=== PATIENT | female | born 2000 | race Caucasian/White ===

== ENCOUNTER 2020-01-10 13:01 | Emergency (ER) | payer BC, SELFPAY ==
--- NOTE | 2020-01-10 13:22 | ED.GENADULT ---
HPI - General Adult General Chief complaint: Ear Stated complaint: Possible ear infection Time Seen by Provider: 01/10/20 13:25 Source: patient and RN notes reviewed Mode of arrival: ambulatory Limitations: no limitations History of Present Illness HPI narrative: This is a 19 years old female presents to the office for an evaluation of ears pain for a couple days. Associated with sinus congestion. Admits to history of frequent ears infection as a kid. Denies fever, cough, or shortness of breath. Related Data Allergies Allergy/AdvReac Type Severity Reaction Status Date / Time amoxicillin [From Augmentin] Allergy Other Verified 01/10/20 13:26 carbamazepine [From Tegretol] Allergy Seizure Verified 01/10/20 13:26 clavulanic acid Allergy Other Verified 01/10/20 13:26 [From Augmentin] Review of Systems Review of Systems: Narrative: CONSTITUTIONAL: Denies fever ENT: Denies sore throat CARDIOVASCULAR: Denies chest pain RESPIRATORY: Denies dyspnea,cough GASTROINTESTINAL: Denies abdominal pain, nausea, vomiting, diarrhea. SKIN: Denies rash MUSCULOSKELETAL: Denies acute back pain NEUROLOGIC: Denies lightheaded PMFSH Past Medical History Medical History (Updated 01/10/20 @ 13:35 by VIVI Carolina) Hx of supraventricular tachycardia leaking valve per patient Social History Social History Gender identity (if verbalized by the patient): Female Comments At time of signature, I agree with nursing past medical, surgical, social and family history. There is no relevant family history pertinent to the presenting complaint. Exam Narrative: Exam Narrative: GENERAL: This is a well-nourished, well-developed patient, in no apparent distress. EYES: Sclera clear/white. Vision is grossly intact. EARS: External ears normal, auditory canals clear and without drainage, TMs noted fluid level without perforation. Hearing grossly intact. NOSE: External nose normal with no obvious nasal discharge, nares without redness, no rhinorrhea. THROAT: Mucous membranes moist, posterior pharynx clear. NECK: Neck supple, non-tender without lymphadenopathy, masses or thyromegaly. CARDIOVASCULAR: Regular rate and rhythm without murmurs, gallops, or rubs. RESPIRATORY: Clear to auscultation. Breath sounds equal bilaterally. No wheezes, rales, or rhonchi. GASTROINTESTINAL: Abdomen soft, non-tender, nondistended. Bowel sounds are active.No guarding. NEURO: awake, alert, and oriented to person, place and time. There were no obvious focal neurologic abnormalities. Steady gait Krishna Coma Scale Eye Opening: Spontaneous 4 Krishna Coma Scale Motor: Obeys Commands 6 Krishna Coma Scale Verbal: Oriented 5 Medical Decision Making MDM Narrative Medical decision making narrative: Discharge instructions reviewed with patient, as well as provided in writing per nursing staff. The instructions also include specific and strict return/GO TO THE ER as well as f/u information. All questions have been answered, and the patient deny any further questions with discharge and discharge plan. Differential Diagnosis Differential Diagnosis: Allergic Rhinitis,Sinusitis, otitis media, otitis externa Critical Care Time Critical Care Time Critical Care Time: No Discharge Plan Discharge Clinical Impression: Acute serous otitis media Qualifiers: Laterality: bilateral Recurrence: non-recurrent Qualified Code(s): H65.03 - Acute serous otitis media, bilateral Patient Disposition: Home, Self-Care Condition: Stable Instructions: Serous Otitis Media (ED) Additional Instructions: Your ear does not appear to be infected at the moment, however there are some fluid behind your ear which may cause your pain The prescribed medication may cause dryness, make sure to drink plenty of water You can also take Tylenol and ibuprofen as needed for pain Follow-up with your doctor if condition is not improving Prescrip
[2020-01-10 13:25] VITALS: BP 142/68; PULSE 70; RESP 16; TEMP 36.4; O2SAT 100
== END 2020-01-10 13:36 | disposition home or self-care (01) ==
PROVIDERS: Emergency Provider Nurse Practitioner
DX: H65.03 Acute serous otitis media, bilateral (principal)
CPT/HCPCS: 99203; G0463

== ENCOUNTER 2020-07-22 12:43 | Emergency (ER) | payer OTHER, BC, SELFPAY ==
--- NOTE | 2020-07-22 12:55 | ED.EYEPROB ---
HPI - Eye Problem General Chief complaint: Upper Respiratory Infection Stated complaint: swelling right eye Time Seen by Provider: 07/22/20 12:55 Source: patient and RN notes reviewed History of Present Illness HPI Narrative: Patient is a 20-year-old female who presents the urgent care with complaints of right eye swelling with rash. Patient states that the rash was noted last night and she has had some right sided ear pain for the last 3 days. Patient has not taken anything [id number] for her symptoms. Denies of any changes in recent face wash, detergents, make-up. Denies of any known trauma or injury to the face/right eye. Denies of any other upper respiratory symptoms. Denies of any fever, cough, shortness of breath. States that her father had been fatigued and was tested for Covid in the last 3 days, which was negative. No other acute complaints. No acute distress noted. Patient aware of the plan of care. Some parts of this dictation were generated by voice recognition software and may contain typographical and/or grammatical inaccuracies. Related Data Home Medications Medication Instructions Recorded Confirmed phentermine 37.5 mg PO DAILY 07/22/20 07/22/20 Allergies Allergy/AdvReac Type Severity Reaction Status Date / Time amoxicillin [From Augmentin] Allergy Other Verified 07/22/20 13:21 carbamazepine [From Tegretol] Allergy Seizure Verified 07/22/20 13:21 clavulanic acid Allergy Other Verified 07/22/20 13:21 [From Augmentin] Review of Systems Review of Systems: Narrative: CONSTITUTIONAL: Denies fever, chills, or sweats. EYES: Denies visual changes, redness, or discharge. Reports of rash surrounding the right eye ENT: Denies rhinorrhea, congestion, sore throat, or otalgia. CARDIOVASCULAR: Denies chest pain, palpitations, or edema. RESPIRATORY: Denies cough or dyspnea. GASTROINTESTINAL: Denies abdominal pain, nausea, vomiting, or diarrhea. GENITOURINARY: Denies dysuria or hematuria. SKIN: Denies rash or itching. MUSCULOSKELETAL: Denies back pain, joint pain, or myalgia. NEUROLOGIC: Denies headache, numbness, or weakness. All other systems reviewed are negative, except as documented in HPI. [facility] Past Medical History Medical History (Updated 07/22/20 @ 13:37 by VIVI Castellon) Hx of supraventricular tachycardia leaking valve per patient Social History Social History Gender identity (if verbalized by the patient): Female Comments At the time of my signature, I reviewed and agree with the nursing past medical, surgical, social, and family history. There is no relevant family history pertinent to the patient complaint. Exam Narrative: Exam Narrative: GENERAL: This is a well-nourished, well-developed patient, in no apparent distress. HEAD: normocephalic, atraumatic. EYES: PERRL. Sclera clear/white. Vision is grossly intact. No notable swelling surrounding the eyes. EARS: External ears normal, auditory canals clear and without drainage, mild fluid noted behind bilateral TMs without otitis. TMs normal without perforation. Hearing grossly intact. NOSE: External nose normal with no obvious nasal discharge, nares without redness, no rhinorrhea. THROAT: Mucous membranes moist, mild to moderate erythema noted to posterior oropharynx with petechiae to the roof/posterior oropharynx NECK: Neck supple, non-tender without lymphadenopathy CARDIOVASCULAR: Regular rate and rhythm without murmurs, gallops, or rubs. RESPIRATORY: Clear to auscultation. Breath sounds equal bilaterally. No wheezes, rales, or rhonchi. SKIN: Petechiae noted around the right eye NEURO: awake, alert, and oriented to person, place and time. There were no obvious focal neurologic abnormalities. EXTREMITIES: No clubbing, cyanosis, or edema. Course Vital Signs Vital signs: Vital Signs Temperature 98.3 F 07/22/20 13:00 Pulse Rate 86 07/22/20 13:00 Respiratory Rat
[2020-07-22 13:00] VITALS: BP 142/91; PULSE 86; RESP 16; TEMP 36.8; O2SAT 100
--- NOTE | 2020-07-22 14:10 | PC.NURSE ---
In middle of exam pt decided on her own she was going to stand up and walk out of the room, when asked where she was going she stated to get her . Would not return even when asked.
== END 2020-07-22 13:40 | disposition home or self-care (01) ==
PROVIDERS: Emergency Provider Nurse Practitioner Family; PCP Emergency Medicine
DX: R23.3 Spontaneous ecchymoses (principal)
CPT/HCPCS: 87081; 87880; 99213; G0463

== ENCOUNTER 2020-10-28 12:39 | Emergency (ER) | payer OTHER, BC, SELFPAY ==
--- NOTE | 2020-10-28 12:52 | ED.EAR ---
HPI - Ear Problem General Chief complaint: Ear Stated complaint: eart pain/dizziness Time Seen by Provider: 10/28/20 12:52 Source: patient and RN notes reviewed History of Present Illness HPI Narrative: Patient is a 20-year-old female who presents the urgent care with complaints of bilateral ear pain and intermittent dizziness for approximately 1 week. Patient states she has a history of bad ear infections and can tolerate a lot of ear pain . Patient has not taken anything for her pain with the exception of 1 dose of ibuprofen since Friday. Patient denies of any other respiratory symptoms such as cough, fever, nausea, vomiting. Patient states that she has been on phentermine for approximately 6 or 7 months and has never caused dizziness. Patient denies recent confusion, headaches, loss of consciousness, seizures. Patient is tearful but otherwise no acute distress noted. Patient aware of the plan of care. Some parts of this dictation were generated by voice recognition software and may contain typographical and/or grammatical inaccuracies. Related Data Home Medications Medication Instructions Recorded Confirmed phentermine 37.5 mg PO DAILY 07/22/20 10/28/20 Allergies Allergy/AdvReac Type Severity Reaction Status Date / Time amoxicillin [From Augmentin] Allergy Other Verified 07/22/20 13:21 carbamazepine [From Tegretol] Allergy Seizure Verified 07/22/20 13:21 clavulanic acid Allergy Other Verified 07/22/20 13:21 [From Augmentin] Review of Systems Review of Systems: Narrative: CONSTITUTIONAL: Denies fever, chills, or sweats. EYES: Denies visual changes, redness, or discharge. ENT: Reports a bilateral otalgia CARDIOVASCULAR: Denies chest pain, palpitations, or edema. RESPIRATORY: Denies cough or dyspnea. GASTROINTESTINAL: Denies abdominal pain, nausea, vomiting, or diarrhea. GENITOURINARY: Denies dysuria or hematuria. SKIN: Denies rash or itching. MUSCULOSKELETAL: Denies back pain, joint pain, or myalgia. NEUROLOGIC: Denies headache, numbness, or weakness. Reports of intermittent dizziness All other systems reviewed are negative, except as documented in HPI. [facility] Past Medical History Medical History (Updated 10/28/20 @ 13:14 by VIVI Castellon) Hx of supraventricular tachycardia leaking valve per patient Social History Social History Gender identity (if verbalized by the patient): Female Comments At the time of my signature, I reviewed and agree with the nursing past medical, surgical, social, and family history. There is no relevant family history pertinent to the patient complaint. Exam Narrative: Exam Narrative: GENERAL: This is a well-nourished, well-developed patient, in no apparent distress. Patient is tearful HEAD: normocephalic, atraumatic. EYES: PERRL. Sclera clear/white. Vision is grossly intact. EARS: External ears normal, auditory canals clear and without drainage, TMs normal without perforation. Hearing grossly intact. NOSE: External nose normal with no obvious nasal discharge, nares without redness, no rhinorrhea. THROAT: Mucous membranes moist, posterior pharynx clear. Very mild erythema noted to posterior oropharynx with mild postnasal drainage without exudate or ulceration. NECK: Neck supple, non-tender without lymphadenopathy, masses or thyromegaly. CARDIOVASCULAR: Regular rate and rhythm without murmurs, gallops, or rubs. RESPIRATORY: Clear to auscultation. Breath sounds equal bilaterally. No wheezes, rales, or rhonchi. SKIN: warm, intact with no suspicious lesions or rash, good texture and turgor. NEURO: awake, alert, and oriented to person, place and time. There were no obvious focal neurologic abnormalities. Ambulates without difficulty EXTREMITIES: No clubbing, cyanosis, or edema. Course Vital Signs Vital signs: Vital Signs Temperature 97.6 F 10/28/20 13:03 Pulse Rate 83 10/28/20 13:03 Respiratory Rate
[2020-10-28 13:03] VITALS: BP 135/93; PULSE 83; RESP 16; TEMP 36.4; O2SAT 99
[2020-10-28 13:11] LABS: Glucose Point of Care 80 (65-105)
== END 2020-10-28 13:22 | disposition home or self-care (01) ==
PROVIDERS: Emergency Provider Nurse Practitioner Family; PCP Emergency Medicine
DX: H92.03 Otalgia, bilateral (principal); R42 Dizziness and giddiness
CPT/HCPCS: 82948; 99213; G0463

== ENCOUNTER 2021-03-26 11:20 | Emergency (ER) | payer OTHER, BC, SELFPAY ==
--- NOTE | ~2021-03-26 | XR_ITS ---
XR knee LT min 4V DATE: 03/26/2021 11:46 INDICATION: Left knee pain for 2 months TECHNIQUE: [place], standing AP, PA and lateral views COMPARISON: None FINDINGS: No fracture or dislocation or joint effusion. Joint spaces are preserved. No radiopaque int ra-articular loose body or chondrocalcinosis. No periosteal reaction or bone destruction. IMPRESSION: Negative Reviewed, dictated and finalized at location A. IMPRESSION: Negative
[2021-03-26 11:30] VITALS: BP 123/74; PULSE 69; RESP 16; TEMP 36.3; O2SAT 99
--- NOTE | 2021-03-26 11:30 | ED.LOWEXIN ---
HPI - Extremity Injury (Lower) General Chief Complaint: Extremity Problem,Nontraumatic Stated Complaint: Knee Pain Time Seen by Provider: 03/26/21 11:30 Source: patient and RN notes reviewed Mode of arrival: ambulatory Limitations: no limitations History of Present Illness HPI Narrative: 21-year-old female presents to [facility] with complaints of pain and swelling of the left knee for the last 2 months. Denies any injury. Has been taking ibuprofen with minimal to no relief. States that around the kneecap is swollen. No redness or inflammation noted. Has full range of motion. Related Data Home Medications Medication Instructions Recorded Confirmed No Home Medications 03/26/21 03/26/21 Allergies Allergy/AdvReac Type Severity Reaction Status Date / Time amoxicillin [From Augmentin] Allergy Other Verified 03/26/21 11:23 carbamazepine [From Tegretol] Allergy Seizure Verified 03/26/21 11:23 clavulanic acid Allergy Other Verified 03/26/21 11:23 [From Augmentin] Review of Systems Review of Systems: All systems reviewed & are unremarkable except as noted in HPI and below Constitutional: Constitutional: Reports no additional constitutional complaints, Denies chills and Denies fever(s) Eyes: Eyes: Reports no additional eye complaints ENT: Reports system reviewed and no additional complaints, except as documented Cardiovascular: Cardiovascular: Reports no additional cardiovascular complaints Respiratory: Respiratory: Reports no additional respiratory complaints Musculoskeletal: Musculoskeletal: Reports as per HPI, Reports arthralgias (Left knee) and Reports joint swelling (Left knee) Integumentary/Breasts: Skin/Breast: Reports system reviewed and no additional complaints, except as docu, Denies pruritus and Denies rash Neurologic: Reports system reviewed and no additional complaints, except as documented Psychiatric: Psychiatric: Reports no additional psychiatric complaints Allergic/Immunologic: Allergic/Immunologic: Reports no additional allergic/immunologic complaints PMFSH Past Medical History Medical History Hx of supraventricular tachycardia leaking valve per patient Surgical History Surgical History (Updated 03/27/21 @ 10:30 by Naomy Xavier) H/O sinus surgery Social History Social History Gender identity (if verbalized by the patient): Female Comments At the time of my signature, I reviewed and agree with the nursing past medical, surgical, social, and family history. There is no relevant family history pertinent to the patient complaint. Exam Const: General: healthy appearing, no acute distress and alert Nutritional Appearance: well nourished and obese Orientation/consciousness: patient oriented x3 Limitations: no limitations HENMT: Head: normal to inspection Eyes: Conjunctivae: conjunctivae normal Pupils: Equal, round and reactive pupils present Neck: Neck: normal visual inspection, no lymphadenopathy and no meningeal signs Chest: Chest palpation & inspection: normal inspection of the chest Resp: Effort & Inspection: normal respiratory effort and no use of accessory muscles Auscultation: clear to auscultation bilaterally, no crackles, no rales, no rhonchi and no wheezes Cardio: Rate: regular rate Rhythm: regular rhythm : General: Yes no CVA tenderness Back/Spine/Pelvis: Back: no CVA tenderness Skin: General skin exam: normal color Rashes: no rashes Wounds: no wounds Neuro: General: patient oriented x3, moves all extremities, no meningeal signs and no focal motor deficits Speech: normal speech Gait exam (Neuro): Normal gait present Extrem: General: normal to inspection, full ROM and capillary refill normal Left lower extremity: knee Details: tenderness Location: of the patella Details: medially, laterally and superiorly, normal ROM and knee ligament exam normal; no
== END 2021-03-26 12:09 | disposition home or self-care (01) ==
PROVIDERS: Emergency Provider Nurse Practitioner; PCP Emergency Medicine
DX: M25.562 Pain in left knee (principal)
CPT/HCPCS: 73564; 99213; G0463

== ENCOUNTER 2024-02-11 12:46 | Outpatient (CLI) | payer BC, SELFPAY ==
--- NOTE | 2024-02-11 | ECG_ITS ---
Test Date: 2024-02-11 13:07:49 Measurements Intervals [place] Rate: 61 P: 56 OK: 163 QRS: 51 QRSD: 87 T: -2 QT: 419 QTc: 422 Interpretive Statements SINUS RHYTHM NONSPECIFIC ST & T-WAVE ABNORMALITY No previous ECG available for comparison Electronically Signed On 02-11-2024 13:10:58 CDT by Linda Trujillo M.D.
== END 2024-02-11 12:47 | disposition home or self-care (01) ==
PROVIDERS: PCP Emergency Medicine; Visit Provider Emergency Medicine
DX: R07.89 Other chest pain (principal)
CPT/HCPCS: 93005

== ENCOUNTER 2024-07-20 17:49 | Emergency (ER) | payer OTHER, BC, SELFPAY ==
--- NOTE | ~2024-07-20 | CT_ITS ---
CT brain wo con Ordering provider: Glory Altamirano APRN History: 24 years Female with . head injury, history of seizures . Comparison: None. Technique: CT of the head without contrast. Radiation reduction technique utilized.The dose-length pr oduct was 605.33 mGy-cm. FINDINGS: BRAIN PARENCHYMA AND CSF SPACES: No midline shift, mass effect or hemorrhage. The brain parenchyma a nd CSF spaces are otherwise normal. VISUALIZED PARANASAL SINUSES: Well aerated. MASTOIDS: Well aerated. BONES: The bones appear intact. SOFT TISSUES: Visualized nasopharynx is normal. Superficial soft tissues are normal. IMPRESSION: No acute intracranial findings. Reviewed, dictated and finalized at location A. [facility]
[2024-07-20 18:00] VITALS: BP 132/74; PULSE 70; RESP 16; TEMP 36.4; O2SAT 100
--- NOTE | 2024-07-20 18:22 | ED.HEATRA ---
HPI - Head Injury General Chief complaint: Head Injury <Glory Altamirano APRN - Last Filed: 07/20/24 18:27> Stated complaint: hit back of head at work <Glory Altamirano APRN - Last Filed: 07/20/24 18:27> Time Seen by Provider: 07/20/24 18:10 <Glory Altamirano APRN - Last Filed: 07/20/24 18:27> Focused HPI: Patient is a 24-year-old female who presents to the ER following a head injury prior to arrival. She reports she bent down to pick something off the ground and when raising up she hit the back of her head. Patient denies any loss of consciousness, vision changes, vomiting. Upon examination, she endorses a headache, lightheadedness, and brain fog. Her mother reports patient has a history of seizures, but has not had one in years. GENERAL: Well-appearing, well-nourished, and in no acute distress. HEAD: Normocephalic, atraumatic. CHEST: Clear to auscultation. ?No respiratory distress. HEART: Regular rate and rhythm.? NEURO: ?Alert and oriented x3. Patient screened in triage and initial orders placed.? ?Additional care and disposition to be based upon?diagnostic testing and treatment. Shared MDM: Risks and benefits of having a brain CT scan were discussed with patient and her mother. After careful consideration patient patient and her mother are opting for patient to have a CT scan performed. <Glory Altamirano APRN - Last Filed: 07/20/24 18:27> Related Data Home medications: Home Medications Medication Instructions Recorded Confirmed No Home Medications 03/26/21 03/26/21 <Glory Altamirano APRN - Last Filed: 07/20/24 18:27> Allergies/Adverse reactions: Allergies Allergy/AdvReac Type Severity Reaction Status Date / Time amoxicillin [From Augmentin] Allergy Other Verified 07/20/24 17:51 carbamazepine [From Tegretol] Allergy Seizure Verified 07/20/24 17:51 clavulanic acid Allergy Other Verified 07/20/24 17:51 [From Augmentin] <Glory Altamirano APRN - Last Filed: 07/20/24 18:27> Review of Systems Review of Systems: CONSTITUTIONAL: Denies fever EYES: Denies visual changes GASTROINTESTINAL: Denies vomiting NEUROLOGIC: Reports headache. Denies numbness, or weakness. <Mignon Holt PA-C - Last Filed: 07/20/24 19:43> All systems reviewed & are unremarkable except as noted in HPI and below <Mignon Holt PA-C - Last Filed: 07/20/24 19:43> PMFSH Past Medical History Medical History: Medical History (Updated 07/20/24 @ 19:34 by Mignon Holt PA-C) Hx of supraventricular tachycardia leaking valve per patient <Glory Altamirano APRN - Last Filed: 07/20/24 18:27> Surgical History Surgical History: Surgical History (Updated 03/27/21 @ 10:30 by Naomy Xavier APRN) H/O sinus surgery <Glory Altamirano APRN - Last Filed: 07/20/24 18:27> Social History Social History: Social History Gender identity (if verbalized by the patient): Female <Glory Altamirano APRN - Last Filed: 07/20/24 18:27> Exam Narrative: GENERAL: Well-appearing, well-nourished, and in no acute distress. HEAD: Normocephalic, atraumatic. EYES: PERRLA and EOMI. ENT: Nares clear, no rhinorrhea or epistaxis. Mucous membranes moist. Oropharynx without tonsillar hypertrophy exudate or other lesions. Bilateral TMs pearly anderson non-bulging NECK: Supple. No adenopathy or masses. CHEST: Clear to auscultation. No respiratory distress. No wheezes rales or rhonchi HEART: Regular rate and rhythm. No murmur heard. Normal peripheral pulses. EXTREMITIES: Normal range of motion. No edema. SKIN: Warm, dry, no rash. NEURO: No focal deficits. Alert and oriented x3. CN II-XII grossly intact PSYCH: Normal mood and affect <Mignon Holt PA-C - Last Filed: 07/20/24 19:43> Course Course Emergency Course: Patient and family updated on workup and agree with plan of care <Mignon Holt PA-C - Last Filed: 07/20/24 19:43> Vital Signs Vital signs: Vital Signs Temperature 97.5 F L 07/20/24 18:00 Pulse Rate 70 07/20/24 18:00 Respiratory Rate 16 07/20/24 18:00 Blood Pressure 132/74 07/20/24 18:00 Pulse Oximetry 100 07/20/24 18:00 Oxygen Delivery Room Air 07/20/24 18:00 Temperature 97.5 F L 07/20/24 18:00 Pulse Rate 70 07/20/24 18:00 Respiratory Rate 16 07/20/24 18:00 Blood Pressure 132/74 07/20/24 18:00 Pulse Oximetry 100 07/20/24 18:00 Oxygen Delivery Room Air 07/20/24 18:00 <Glory Altamirano, FELTING MACHINE OPERATOR - Last Filed: 07/20/24 18:27> Vital Signs Temperature 97.5 F L 07/20/24 18:00 Pulse Rate 70 07/20/24 18:00 Respiratory Rate 16 07/20/24 18:00 Blood Pressure 132/74 07/20/24 18:00 Pulse Oximetry 100 07/20/24 18:00 Oxygen Delivery Room Air 07/20/24 18:00 Temperature 97.5 F L 07/20/24 18:00 Pulse Rate 70 07/20/24 18:00 Respiratory Rate 16 07/20/24 18:00 Blood Pressure 132/74 07/20/24 18:00 Pulse Oximetry 100 07/20/24 18:00 Oxygen Delivery Room Air 07/20/24 18:00 <Mignon Holt PA-C - Last Filed: 07/20/24 19:43> MDM - Head Injury MDM Narrative Medical decision making narrative: Patient presents to the ER after a head injury today. She is neurologically intact. CT brain without acute findings. Patient was educated on further care of concussion. She is to follow up with primary provider. She was given warnings to return to the ER <Mignon Holt PA-C - Last Filed: 07/20/24 19:43> Differential Diagnosis Differential diagnosis: Likely concussion without loss of consciousness, closed head injury and subdural hematoma <Mignon Holt PA-C - Last Filed: 07/20/24 19:43> Imaging Data Radiologist's impression: ITS Impressions Head CT 07/20/24 19:05 IMPRESSION: No acute intracranial findings. <Mignon Holt PA-C - Last Filed: 07/20/24 19:43> Critical Care Time Critical Care Time Critical Care Time: No <Mignon Holt PA-C - Last Filed: 07/20/24 19:43> Discharge Plan Discharge Clinical Impression: Closed head injury Qualifiers: Encounter type: initial encounter Qualified Code(s): S09.90XA - Unspecified injury of head, initial encounter <Glory Altamirano APRN - Last Filed: 07/20/24 18:27> Patient Disposition: Home, Self-Care <Glory Altamirano APRN - Last Filed: 07/20/24 18:27> Condition: Stable <Glory Altamirano APRN - Last Filed: 07/20/24 18:27> Instructions: Concussion (ED) <Glory Altamirano APRN - Last Filed: 07/20/24 18:27> Additional Instructions: Return to the emergency department if you experience fever, chest pain, shortness of breath, abdominal pain with nausea and vomiting, weakness, numbness, or any other symptoms that are concerning to you. Rest. Remain well hydrated. Tylenol or Ibuprofen as needed for pain Follow up with primary care doctor <Glory Altamirano APRN - Last Filed: 07/20/24 18:27> Prescriptions: No Action No Home Medications <Glory Altamirano APRN - Last Filed: 07/20/24 18:27> Follow-up/Referrals: Paul Sebastian MD [Primary Care Provider] - <Glory Altamirano APRN - Last Filed: 07/20/24 18:27> Stand Alone Forms: Work/School Release IP <Glory Altamirano APRN - Last Filed: 07/20/24 18:27>
[2024-07-20] MEDS: HYDROcodone/acetaminophen (*CRX) 5-325 MG TABLET 1 TAB PO (18:33)
== END 2024-07-20 19:59 | disposition home or self-care (01) ==
PROVIDERS: Emergency Provider Physician Assistant; PCP Emergency Medicine
DX: S09.90XA Unspecified injury of head, initial encounter (principal); W22.09XA Striking against other stationary object, initial encounter
CPT/HCPCS: 70450; 99284; A9270